=== PATIENT | female | born 1945 | race Caucasian/White ===

== ENCOUNTER → 2020-03-12 | Outpatient (CLI) | payer MEDICARE ==
[~2020-03-12] MED LIST: ATENOLOL 50MG T50 M1 PO; CELEXA40 MG PO; EVISTA; GLUCOPHAGE500 MG PO; KEFLEX500 MG PO
== END ==
LOC: M.LAB 15:36
PROVIDERS: ATTEND Surgery
DX: Z01.812 Encounter for preprocedural laboratory examination (principal); Z20.828 Contact with and (suspected) exposure to other viral communicable diseases; L98.9 Disorder of the skin and subcutaneous tissue, unspecified